=== PATIENT | male | born 1985 | race Caucasian/White ===

== ENCOUNTER 2018-05-11 21:58 | Observation (INO) | payer OTHER ==
[2018-05-11] MEDS ORDERED: LORazepam INJ* 2 MG/ML 1 ML VIAL IV ONE (22:04)
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
[2018-05-11 22:30] LABS: Hematocrit 47 % (42-52); Hemoglobin 15.9 g/dl (14.0-18.0); Mean Corpuscular HGB Conc 34 g/dl (31-36); Mean Corpuscular Hemoglobin 34 pg (27-31); Mean Corpuscular Volume 100 fL (80-94); Mean Platelet Volume 8.6 fL (7.4-10.4); Platelet Count 303 10^3/ul (150-450); Red Blood Count 4.72 10^6/ul (4.00-5.40); Red Cell Distribution Width 13 % (10.5-15); White Blood Count 9.9 10^3/ul (3.5-10.8)
[2018-05-11 22:40] LABS: ALT 25 U/L (7-52); Albumin/Globulin Ratio 1.6 (1-3); Alkaline Phosphatase 95 U/L (34-104); BUN/Creatinine Ratio 16.4 (8-20); Blood Urea Nitrogen 23 mg/dL (6-24); CO2 Carbon Dioxide 18 mmol/L (22-32); Calcium 8.6 mg/dL (8.6-10.3); Chloride 101 mmol/L (101-111); EGFR African American 71.1 (>60); EGFR Non-African American 58.7 (>60); Globulin 2.5 g/dL (2-4); Glucose 297 mg/dL (70-100); Sodium 136 mmol/L (135-145); Total Protein 6.5 g/dL (6.4-8.9)
[2018-05-11 22:53] LABS: INR 0.92 (0.77-1.02)
[2018-05-11 22:58] LABS: ABS Basophils 0.1 10^3/ul (0-0.2); ABS Eosinophils 0 10^3/ul (0-0.6); ABS Lymphocytes 5.2 10^3/ul (1.0-4.8); ABS Monocytes 0.1 10^3/ul (0-0.8); ABS Neutrophils 4.4 10^3/ul (1.5-7.7); ABS Nucleated RBC 0 10^3/ul; Eosinophil % 0.3 %; Lymphocyte % 52.6 %; Nucleated Red Blood Cells % 0.2
[2018-05-11] MEDS ORDERED: NS 0.9% 1000 ML* 3,000 ML IV ONE (23:02)
[2018-05-11 23:07] LABS: Alcohol < 10 mg/dL (<10)
[2018-05-11 23:27] LABS: Anion Gap 17 mmol/L (2-11); Potassium 3.1 mmol/L (3.5-5.0)
[2018-05-11] MEDS ORDERED: NS 0.9% w/ 40 Meq KCL 1000 ML* 1,000 ML IV SCH (23:45)
[2018-05-11 23:50] LABS: AST 25 U/L (13-39)
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
[2018-05-12 06:50] LABS: ABS Basophils 0 10^3/ul (0-0.2); ABS Eosinophils 0 10^3/ul (0-0.6); ABS Neutrophils 19.4 10^3/ul (1.5-7.7); ABS Nucleated RBC 0 10^3/ul; Eosinophil % 0.2 %; Hematocrit 40 % (42-52); Hemoglobin 13.9 g/dl (14.0-18.0); Lymphocyte % 4.7 %; Mean Corpuscular HGB Conc 35 g/dl (31-36); Mean Corpuscular Hemoglobin 33 pg (27-31); Mean Corpuscular Volume 96 fL (80-94); Mean Platelet Volume 8.2 fL (7.4-10.4); Nucleated Red Blood Cells % 0; Platelet Count 243 10^3/ul (150-450); Red Blood Count 4.16 10^6/ul (4.00-5.40); Red Cell Distribution Width 13 % (10.5-15); White Blood Count 21.5 10^3/ul (3.5-10.8)
[2018-05-12 07:03] LABS: BUN/Creatinine Ratio 21.7 (8-20); Calcium 8.1 mg/dL (8.6-10.3); EGFR African American 115.4 (>60); EGFR Non-African American 95.3 (>60); Potassium 4.1 mmol/L (3.5-5.0)
[2018-05-12 10:30] LABS: Urine Appearance Clear; Urine Bilirubin Negative (Negative); Urine Blood Negative (Negative); Urine Color Yellow; Urine Glucose Negative (Negative); Urine Ketones Negative (Negative); Urine Nitrite Negative (Negative); Urine Protein Negative (Negative); Urine Specific Gravity 1.013 (1.010-1.030); Urine Urobilinogen Negative (Negative)
[2018-05-12 11:04] LABS: Barbiturates Urine Screen None Detected (None Detect); Benzodiazepine Urine Screen None Detected (None Detect); Urine Cannabinoids Screen Presumptive Positive (None Detect)
[2018-05-12] MEDS ORDERED: Gadoteridol* (CONTRAST) 279.3 MG/ML 10 ML IV ONE (11:34)
[2018-05-12 12:57] VITALS: BP 128/75
[2018-05-12 13:17] LABS: TSH (Thyroid Stimulating Horm) 0.75 mcIU/mL (0.34-5.60)
[2018-05-12 13:19] LABS: Free T4 0.77 ng/dL (0.61-1.12)
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
--- NOTE | 2018-05-12 19:52 | EEG ---
ELECTROENCEPHALOGRAPHY: DATE OF STUDY: 05/12/18 - ROOM #419 DATE READ: 05/12/18 ORDERED BY: Kayla Hoffman MD MEDICATIONS: None. INDICATION: Mr. Alfaro is a 32-year-old man who has recent history of diarrhea and alcohol cessation for approximately 48 hours who developed witnessed generalized convulsions. This EEG was obtained to evaluate for epileptiform activity or electrographic seizures. CLINICAL STATE: Awake. REPORT: The waking background showed appropriate organization with clearly defined anterior-posterior voltage gradient and frequency. There was a well- defined posterior dominant rhythm of 12 Hz that was symmetric and seen bilaterally. There was an anteriorly and expected pattern of lower voltage, irregular, mixed faster frequency. Hyperventilation and photic stimulation were not performed. EKG showed a normal sinus rhythm. CLINICAL IMPRESSION: This is a normal waking EEG with no evidence of epileptiform abnormalities or electrographic seizures. A normal interictal EEG does not exclude nor support the diagnosis of epilepsy. Clinical correlation is recommended. [id number]/CPS #: [id number] [facility]
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
[2018-05-13] MEDS ORDERED: Cyanocobalamin TAB* 500 MCG PO SCH (09:00)
== END 2018-05-12 14:35 | disposition home or self-care (01) ==
LOC: ED 21:58 → MED 05-12 00:02
PROVIDERS: ADMIT Internal Medicine; ATTEND Internal Medicine
DX: R56.9 Unspecified convulsions (principal); R65.10 Systemic inflammatory response syndrome (SIRS) of non-infectious origin without acute organ dysfunction; R19.7 Diarrhea, unspecified; G47.00 Insomnia, unspecified; R53.1 Weakness; N17.9 Acute kidney failure, unspecified; E87.2 Acidosis; R73.9 Hyperglycemia, unspecified; E87.6 Hypokalemia; Z88.0 Allergy status to penicillin; Z87.828 Personal history of other (healed) physical injury and trauma
CPT/HCPCS: 36415; 70450; 70553; 71045; 80048; 80053; 80307; 80320; 81003; 82270; 82607; 83036; 83605; 83630; 84439; 84443; 85025; 85610; 87040; 87045; 87046; 87899; 93005; 95819; 96374; 99285; A9579; G0378; G0480